=== PATIENT | female | born 1980 | race Caucasian/White ===

== ENCOUNTER 2017-01-24 13:06 | Emergency (ER) | payer OTHER ==
[~2017-01-24] VITALS: Ht 162.6 cm; Wt 68.0 kg
[~2017-01-24 13:06] MED LIST: DOLOBID500 MG PO; FLEXERIL10 MG PO; PEN-VEE K PO; PERCOCET5/325 PO; ULTRAM PO; VOLTAREN50 MG PO
== END 2017-01-24 14:03 | disposition home or self-care (01) ==
LOC: CED 13:06 → CFTX 13:06
DX: K08.89 Other specified disorders of teeth and supporting structures (principal); F17.210 Nicotine dependence, cigarettes, uncomplicated; Z98.51 Tubal ligation status
CPT/HCPCS: 99282